=== PATIENT | female | born 1935 | race Caucasian/White ===

== ENCOUNTER 2020-07-20 13:05 | Emergency (ER) | payer MEDICARE ==
--- NOTE | 2020-07-20 14:11 | CT ---
CT OF THE BRAIN WITHOUT CONTRAST: 07/20/20 The ventricles are normal in size for age and atrophy and show no shift. No intracranial bleeding or extra-axial hematoma was seen. There is no sign of mass, edema, or stroke. 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 IMPRESSION: No acute findings. Preliminary report called to [facility] in ER at 1348 on 07/20/20. POS: HOME
== END 2020-07-20 14:15 | disposition home or self-care (01) ==
LOC: BURERS 13:05
DX: R51 Headache (principal)
CPT/HCPCS: 70450